=== PATIENT | female | born 1970 | race African-American/Black ===

== ENCOUNTER 2016-12-12 16:04 | Emergency (ER) | payer MEDICARE, MEDICAID ==
[~2016-12-12] VITALS: Ht 157.5 cm; Wt 85.0 kg
[~2016-12-12 16:04] MED LIST: FS300; HYDR-4005
[2016-12-12 16:29] VITALS: BP 131/87
== END 2016-12-12 22:30 | disposition left against medical advice (07) ==
LOC: ER 22:14
DX: Z53.21 Procedure and treatment not carried out due to patient leaving prior to being seen by health care provider (principal)

== ENCOUNTER 2017-01-13 13:43 | Inpatient (IN) | payer MEDICARE, MEDICAID ==
[~2017-01-13] VITALS: Ht 157.5 cm; Wt 98.4 kg
[~2017-01-13 13:43] MED LIST changes: -FS300; +FS300 PO
[2017-01-13 15:19] LABS: BASOPHILS % 0.3 % (0.0-2.0); EOSINOPHILS % 0.9 % (0.0-5.0); HEMATOCRIT. 34.7 % (36.0-48.0); HEMOGLOBIN. 11.2 g/dL (12.0-16.0); LYMPHOCYTES % 18.5 % (20.0-50.0); MEAN CORPUSCULAR HEMOGLOBIN 23.3 pg (28.0-32.0); MEAN PLATELET VOLUME 10.4 fl (7.4-10.4); MONOCYTES % 5.5 % (2.0-8.0); NEUTROPHILS % 74.8 % (40.0-76.0); PLATELET 228 x1000/uL (130-400); RED BLOOD CELL COUNT 4.82 mill/uL (4.2-5.4); RED CELL DISTRIBUTION WIDTH 18.9 % (11.6-14.6)
[2017-01-13 15:21] LABS: PROTHROMBIN TIME 10.7 sec
[2017-01-13 15:27] LABS: CARBON DIOXIDE 25 mEq/L (21-32); CHLORIDE 106 mEq/L (98-107); ETHANOL BLOOD < 10 mg/dL
[2017-01-13 15:31] LABS: CREATINE KINASE 90 IU/L (26-192); HCG SCREEN NEGATIVE; PHENYTOIN 1.4 ug/mL (10-20); TROPONIN I < 0.02 ng/mL (0.00-0.04)
[2017-01-13 15:33] LABS: CARBAMAZEPINE < 0.5 ug/mL (4-12)
[2017-01-13 15:38] LABS: PHENOBARBITAL < 2.1 ug/mL (15.0-40.0)
[2017-01-13] MEDS ORDERED: POTASSIUM CHLORIDE 20MEQ TABLET SR PO ONE (16:00)
[2017-01-13 16:09] LABS: CLARITY URINE CLEAR (CLEAR); COLOR URINE YELLOW (YELLOW); GLUCOSE URINE NEGATIVE (NEGATIVE); KETONES URINE NEGATIVE (NEGATIVE); LEUKOCYTE ESTERASE URINE 2+ (NEGATIVE); NITRITE URINE POSITIVE (NEGATIVE); OCCULT BLOOD URINE 1+ (NEGATIVE); PROTEIN URINE NEGATIVE (NEGATIVE); SPECIFIC GRAVITY URINE 1.015 (1.005-1.030); UROBILINOGEN URINE 0.2 E.U./dL (0.2-1.0)
[2017-01-13] MEDS ORDERED: MORPHINE SULFATE 4 MG/ML CPJ (NOT FOR IM USE) IV ONE (16:15)
[2017-01-13] MEDS ORDERED: ONDANSETRON HCL 4MG/2ML VIAL IV ONE (16:15)
[2017-01-13 16:26] LABS: *AMPHETAMINES SCREEN URINE NEGATIVE (NEGATIVE); *BARBITURATES SCREEN URINE NEGATIVE (NEGATIVE); *BENZODIAZEPINES SCREEN URINE NEGATIVE (NEGATIVE); *COCAINE SCREEN URINE NEGATIVE (NEGATIVE); METHADONE URINE SCREEN NEGATIVE (NEGATIVE); OPIATES URINE SCREEN NEGATIVE (NEGATIVE); PHENCYCLIDINE URINE SCREEN NEGATIVE (NEGATIVE)
[2017-01-13 16:27] LABS: CANNABINOID URINE SCREEN PRESUMTIVE POSITIVE (NEGATIVE)
[2017-01-13] MEDS ORDERED: CLONIDINE 0.1MG TABLET GT ONE (17:15)
[2017-01-13] MEDS ORDERED: LEVOFLOXACIN 500MG TABLET PO ONE (17:15)
[2017-01-13 19:33] VITALS: BP 108/77
[2017-01-13 20:00] VITALS: BP 98/59
[2017-01-13] MEDS ORDERED: MULT-1146 PO (20:27)
[2017-01-13] MEDS ORDERED: IBUP-1509 PO (20:27)
[2017-01-13] MEDS ORDERED: DOCU-138 PO (20:27)
[2017-01-13] MEDS ORDERED: OMEP20TA80 PO (20:27)
[2017-01-13] MEDS ORDERED: ATOR40TA70 PO (20:27)
[2017-01-13] MEDS ORDERED: CLOP75TA33 PO (20:27)
[2017-01-13] MEDS ORDERED: ACETAMINOPHEN 325MG TABLET PO PRN (20:45)
[2017-01-13] MEDS: IBUPROFEN 400MG TABLET PO SCH (21:27)
[2017-01-13] MEDS: DOCUSATE SODIUM 100MG CAPSULE PO SCH (21:29)
[2017-01-13] MEDS: ATORVASTATIN CALCIUM 40MG TABLET PO SCH (21:29)
[2017-01-13] MEDS: ENOXAPARIN 40MG/0.4ML SYR SUBCUT SCH (21:29)
[2017-01-13] MEDS: MULTIVITAMINS,THER W-MINERALS TABLET PO SCH (21:29)
[2017-01-13] MEDS: FERROUS SULFATE 325MG TABLET PO SCH (21:29)
[2017-01-14] VITALS: BP 101/59
[2017-01-14] MEDS ORDERED: VALS1TAB74 PO (00:34)
[2017-01-14 04:00] VITALS: BP 110/58
[2017-01-14 05:38] LABS: BASOPHILS % 0.1 % (0.0-2.0); EOSINOPHILS % 0.8 % (0.0-5.0); HEMATOCRIT. 33.2 % (36.0-48.0); HEMOGLOBIN. 10.7 g/dL (12.0-16.0); LYMPHOCYTES % 19.6 % (20.0-50.0); MEAN CORPUSCULAR HEMOGLOBIN 23.4 pg (28.0-32.0); MEAN CORPUSCULAR VOLUME 72.3 fL (81.0-99.0); MEAN PLATELET VOLUME 10.2 fl (7.4-10.4); MONOCYTES % 6.9 % (2.0-8.0); NEUTROPHILS % 72.6 % (40.0-76.0); PLATELET 219 x1000/uL (130-400); RED BLOOD CELL COUNT 4.59 mill/uL (4.2-5.4); RED CELL DISTRIBUTION WIDTH 18.8 % (11.6-14.6)
[2017-01-14 06:14] LABS: CARBON DIOXIDE 26 mEq/L (21-32); CHLORIDE 105 mEq/L (98-107)
[2017-01-14 06:18] LABS: HDL CHOLESTEROL 37 mg/dL (40-59); LDL CHOLESTEROL 84 mg/dL (5-100)
[2017-01-14 08:00] VITALS: BP 93/52
[2017-01-14] MEDS: PANTOPRAZOLE 40MG DR TABLET PO SCH (08:37)
[2017-01-14] MEDS: FERROUS SULFATE 325MG TABLET PO SCH (08:37)
[2017-01-14] MEDS: MULTIVITAMINS,THER W-MINERALS TABLET PO SCH (08:38)
[2017-01-14] MEDS: DOCUSATE SODIUM 100MG CAPSULE PO SCH (08:38)
[2017-01-14] MEDS: IBUPROFEN 400MG TABLET PO SCH ×2 (08:39→16:56)
[2017-01-14 12:00] VITALS: BP 94/58
[2017-01-14 16:00] VITALS: BP 95/66
[2017-01-14] MEDS: ATORVASTATIN CALCIUM 40MG TABLET PO SCH (16:56)
[2017-01-14] MEDS: BACLOFEN 10MG TABLET PO SCH (17:00)
[2017-01-14 20:00] VITALS: BP 106/58
[2017-01-14] MEDS: ENOXAPARIN 40MG/0.4ML SYR SUBCUT SCH (21:12)
[2017-01-15] VITALS: BP 88/60
[2017-01-15 01:00] VITALS: BP 116/73
[2017-01-15 04:00] VITALS: BP 101/55
[2017-01-15 08:00] VITALS: BP 99/64
[2017-01-15] MEDS: MULTIVITAMINS,THER W-MINERALS TABLET PO SCH (08:28)
[2017-01-15] MEDS: FERROUS SULFATE 325MG TABLET PO SCH (08:28)
[2017-01-15] MEDS: BACLOFEN 10MG TABLET PO SCH ×2 (08:28→17:06)
[2017-01-15] MEDS: PANTOPRAZOLE 40MG DR TABLET PO SCH (08:28)
[2017-01-15] MEDS: DOCUSATE SODIUM 100MG CAPSULE PO SCH (08:28)
[2017-01-15] MEDS: IBUPROFEN 400MG TABLET PO SCH ×2 (08:32→17:07)
[2017-01-15 12:00] VITALS: BP 99/67
[2017-01-15 16:00] VITALS: BP 99/64
[2017-01-15] MEDS: ATORVASTATIN CALCIUM 40MG TABLET PO SCH (17:06)
[2017-01-15] MEDS: ENOXAPARIN 40MG/0.4ML SYR SUBCUT SCH (20:43)
[2017-01-15] MEDS: SODIUM CHLORIDE 0.45% 1,000 ML IV SCH (20:43)
[2017-01-16] VITALS: BP 101/93
[2017-01-16 04:00] VITALS: BP 112/61
[2017-01-16] MEDS: PANTOPRAZOLE 40MG DR TABLET PO SCH (06:40)
[2017-01-16 08:00] VITALS: BP 109/70
[2017-01-16] MEDS: DOCUSATE SODIUM 100MG CAPSULE PO SCH (08:26)
[2017-01-16] MEDS: MULTIVITAMINS,THER W-MINERALS TABLET PO SCH (08:26)
[2017-01-16] MEDS: FERROUS SULFATE 325MG TABLET PO SCH (08:26)
[2017-01-16] MEDS: BACLOFEN 10MG TABLET PO SCH (08:27)
[2017-01-16] MEDS: IBUPROFEN 400MG TABLET PO SCH (08:28)
[2017-01-16] MEDS: SODIUM CHLORIDE 0.45% 1,000 ML IV SCH (11:38)
[2017-01-16 11:59] VITALS: BP 97/56
[2017-01-16 12:00] VITALS: BP 97/56
[2017-01-16 14:43] LABS: BASOPHILS % 0.2 % (0.0-2.0); EOSINOPHILS % 0.9 % (0.0-5.0); HEMATOCRIT. 34.3 % (36.0-48.0); HEMOGLOBIN. 11.3 g/dL (12.0-16.0); LYMPHOCYTES % 19.5 % (20.0-50.0); MEAN CORPUSCULAR HEMOGLOBIN 23.6 pg (28.0-32.0); MEAN CORPUSCULAR VOLUME 71.6 fL (81.0-99.0); MEAN PLATELET VOLUME 10.7 fl (7.4-10.4); MONOCYTES % 6.1 % (2.0-8.0); NEUTROPHILS % 73.3 % (40.0-76.0); PLATELET 248 x1000/uL (130-400); RED BLOOD CELL COUNT 4.79 mill/uL (4.2-5.4); RED CELL DISTRIBUTION WIDTH 18.6 % (11.6-14.6)
[2017-01-16 15:16] LABS: CARBON DIOXIDE 26 mEq/L (21-32); CHLORIDE 108 mEq/L (98-107)
[2017-01-17] MEDS ORDERED: FAMOTIDINE 20MG TABLET PO SCH (09:00)
== END 2017-01-16 15:50 | disposition home or self-care (01) | DRG 690 ==
LOC: EDBEDREQ 14:24 → ER 15:00 → 7WST 16:08 → EDBEDREQ 16:09 → ENRESERV 16:57
PROVIDERS: ADMIT Family Medicine; ATTEND Family Medicine
DX: N39.0 Urinary tract infection, site not specified (principal); I69.351 Hemiplegia and hemiparesis following cerebral infarction affecting right dominant side; D64.9 Anemia, unspecified; E66.01 Morbid (severe) obesity due to excess calories; I10 Essential (primary) hypertension; F32.9 Major depressive disorder, single episode, unspecified; F41.9 Anxiety disorder, unspecified; Z90.710 Acquired absence of both cervix and uterus; Z90.722 Acquired absence of ovaries, bilateral; Z88.0 Allergy status to penicillin; Z79.899 Other long term (current) drug therapy; Z82.49 Family history of ischemic heart disease and other diseases of the circulatory system; Z68.39 Body mass index [BMI] 39.0-39.9, adult; Z91.011 Allergy to milk products
CPT/HCPCS: 36415; 70450; 70551; 71010; 80053; 80061; 80156; 80165; 80184; 80185; 80305; 81001; 82550; 83735; 83880; 84443; 84484; 84703; 85025; 85610; 87086; 93005; 93306; 93880; 96374; 96375; 97163; 97166; 97530; 97535; 99285; G0482; J1650; J2270; J2405

== ENCOUNTER 2017-07-24 17:14 | Emergency (ER) | payer MEDICARE, MEDICAID ==
[~2017-07-24] VITALS: Ht 160 cm; Wt 98.0 kg
[~2017-07-24 17:14] MED LIST changes: +ATOR40TA70 PO; +CLOP75TA33 PO; +DOCU-138 PO; +FERR325T23 PO; -FS300 PO; -HYDR-4005; +IBUP-2028 PO; +MULT-1146 PO; +OMEP20TA2 PO; +VALS1TAB74 PO
[2017-07-24] MEDS ORDERED: CLOP75TA16 PO (17:24)
[2017-07-24 22:28] VITALS: BP 122/84
== END 2017-07-24 22:29 | disposition home or self-care (01) ==
LOC: ER 18:28
DX: S80.01XA Contusion of right knee, initial encounter (principal); I10 Essential (primary) hypertension; Z88.0 Allergy status to penicillin; Z91.011 Allergy to milk products; Z86.73 Personal history of transient ischemic attack (TIA), and cerebral infarction without residual deficits; Z90.710 Acquired absence of both cervix and uterus; W01.0XXA Fall on same level from slipping, tripping and stumbling without subsequent striking against object, initial encounter; Y93.89 Activity, other specified; Y92.811 Bus as the place of occurrence of the external cause
CPT/HCPCS: 73562; 99284

== ENCOUNTER 2018-01-26 09:41 | Emergency (ER) | payer MEDICARE, MEDICAID ==
[~2018-01-26] VITALS: Ht 157.5 cm; Wt 88.0 kg
[~2018-01-26 09:41] MED LIST changes: +CLOP75TA16 PO
[2018-01-26 10:01] VITALS: BP 131/73
[2018-01-26] MEDS ORDERED: ACETAMINOPHEN 325MG TABLET PO ONE (14:00)
== END 2018-01-26 14:14 | disposition home or self-care (01) ==
LOC: ER 10:34
DX: S90.111A Contusion of right great toe without damage to nail, initial encounter (principal); I10 Essential (primary) hypertension; Z91.011 Allergy to milk products; Z88.8 Allergy status to other drugs, medicaments and biological substances; Z86.73 Personal history of transient ischemic attack (TIA), and cerebral infarction without residual deficits; X58.XXXA Exposure to other specified factors, initial encounter; Y93.89 Activity, other specified; Y92.89 Other specified places as the place of occurrence of the external cause; Y99.8 Other external cause status
CPT/HCPCS: 73630; 99284

== ENCOUNTER 2018-05-23 17:11 | Emergency (ER) | payer MEDICARE, MEDICAID ==
[~2018-05-23] VITALS: Ht 162.6 cm; Wt 90.0 kg
[2018-05-23] MEDS ORDERED: TRAMADOL 50MG TABLET PO ONE (18:00)
[2018-05-23 21:10] VITALS: BP 112/76
== END 2018-05-23 21:11 | disposition home or self-care (01) ==
LOC: ER 17:11
DX: S09.90XA Unspecified injury of head, initial encounter (principal); M54.2 Cervicalgia; M25.512 Pain in left shoulder; I10 Essential (primary) hypertension; Z86.73 Personal history of transient ischemic attack (TIA), and cerebral infarction without residual deficits; Z91.011 Allergy to milk products; Z79.899 Other long term (current) drug therapy; Y08.89XA Assault by other specified means, initial encounter; Y93.89 Activity, other specified; Y92.89 Other specified places as the place of occurrence of the external cause; Y99.8 Other external cause status
CPT/HCPCS: 73030; 81025; 99284

== ENCOUNTER 2019-02-17 17:11 | Emergency (ER) | payer MEDICARE, MEDICAID ==
[~2019-02-17] VITALS: Ht 157.5 cm; Wt 94.0 kg
[~2019-02-17 17:11] MED LIST changes: -CLOP75TA16 PO; +CLOP75TA4 PO
[2019-02-17] MEDS ORDERED: IBUPROFEN 600MG TABLET PO ONE (19:45)
[2019-02-17] MEDS ORDERED: HYDROCODONE/ACETAMINOPHEN 5/325MG TABLET PO ONE (19:45)
[2019-02-17 21:02] LABS: CLARITY URINE CLEAR (CLEAR); COLOR URINE DARK YELLOW (YELLOW); KETONES URINE NEGATIVE (NEGATIVE); LEUKOCYTE ESTERASE URINE TRACE (NEGATIVE); NITRITE URINE POSITIVE (NEGATIVE); OCCULT BLOOD URINE 1+ (NEGATIVE); PH URINE 6.5 (4.5-8.0); PROTEIN URINE NEGATIVE (NEGATIVE); SPECIFIC GRAVITY URINE 1.015 (1.005-1.030); UROBILINOGEN URINE 0.2 E.U./dL (0.2-1.0)
[2019-02-17 22:20] VITALS: BP 109/77
== END 2019-02-17 22:30 | disposition home or self-care (01) ==
LOC: ER 17:11
DX: S90.121A Contusion of right lesser toe(s) without damage to nail, initial encounter (principal); M72.2 Plantar fascial fibromatosis; I10 Essential (primary) hypertension; Z86.73 Personal history of transient ischemic attack (TIA), and cerebral infarction without residual deficits; Z87.440 Personal history of urinary (tract) infections; Z90.710 Acquired absence of both cervix and uterus; Z79.899 Other long term (current) drug therapy; Z91.011 Allergy to milk products; W22.8XXA Striking against or struck by other objects, initial encounter; Y93.01 Activity, walking, marching and hiking; Y92.89 Other specified places as the place of occurrence of the external cause; Y99.8 Other external cause status
CPT/HCPCS: 73630; 81003; 81025; 99284

== ENCOUNTER 2019-04-26 17:48 | Emergency (ER) | payer MEDICARE, MEDICAID ==
[~2019-04-26] VITALS: Ht 157.5 cm; Wt 80.0 kg
[2019-04-26] MEDS ORDERED: SODIUM CHLORIDE 0.9% 1,000 ML IV ONE (20:33)
[2019-04-26] MEDS ORDERED: ONDANSETRON HCL 4MG/2ML INJ IV STA (20:33)
[2019-04-26] MEDS ORDERED: KETOROLAC 30MG/ML VIAL IV STA (20:33)
[2019-04-26] MEDS ORDERED: MORPHINE SULFATE 4 MG/ML CPJ (NOT FOR IM USE) IV STA (20:33)
[2019-04-26] MEDS ORDERED: TETANUS, DIPHTHERIA, PERTUSSIS VAC/PF 0.5ML (>7YR OLD) IM ONE (20:45)
[2019-04-26 20:55] LABS: EOSINOPHILS % 1.3 % (0.0-5.0); HEMATOCRIT. 38.1 % (36.0-48.0); HEMOGLOBIN. 12.5 g/dL (12.0-16.0); LYMPHOCYTES % 9.1 % (20.0-50.0); MEAN CORPUSCULAR HEMOGLOBIN 25.2 pg (28.0-32.0); MEAN CORPUSCULAR VOLUME 76.9 fL (81.0-99.0); MEAN PLATELET VOLUME 10.4 fl (7.4-10.4); MONOCYTES % 4.4 % (2.0-8.0); NEUTROPHILS % 85.2 % (40.0-76.0); PLATELET 252 x1000/uL (130-400); RED BLOOD CELL COUNT 4.95 mill/uL (4.2-5.4); RED CELL DISTRIBUTION WIDTH 15.1 % (11.6-14.6)
[2019-04-26 20:59] LABS: CHLORIDE 106 mEq/L (98-107)
[2019-04-26] MEDS ORDERED: ACETAMINOPHEN 500MG TABLET PO ONE (22:30)
[2019-04-27 01:15] VITALS: BP 115/69
== END 2019-04-27 01:40 | disposition home or self-care (01) ==
LOC: ER 17:48
DX: S82.001A Unspecified fracture of right patella, initial encounter for closed fracture (principal); I11.9 Hypertensive heart disease without heart failure; F17.200 Nicotine dependence, unspecified, uncomplicated; V03.90XA Pedestrian on foot injured in collision with car, pick-up truck or van, unspecified whether traffic or nontraffic accident, initial encounter; Y92.410 Unspecified street and highway as the place of occurrence of the external cause; Y93.9 Activity, unspecified; Z86.73 Personal history of transient ischemic attack (TIA), and cerebral infarction without residual deficits; Z91.011 Allergy to milk products
CPT/HCPCS: 36415; 73130; 73502; 73552; 73562; 73590; 73610; 80053; 81025; 85025; 90471; 90715; 96374; 96375; 99284; J1885; J2270; J2405; J7030; L1830

== ENCOUNTER 2019-04-27 14:46 | Emergency (ER) | payer MEDICARE, MEDICAID ==
[~2019-04-27] VITALS: Ht 157.5 cm; Wt 69.0 kg
[2019-04-27 16:29] VITALS: BP 122/80
== END 2019-04-27 16:30 | disposition home or self-care (01) ==
LOC: ER 14:55
DX: S82.001D Unspecified fracture of right patella, subsequent encounter for closed fracture with routine healing (principal); S82.121D Displaced fracture of lateral condyle of right tibia, subsequent encounter for closed fracture with routine healing; I11.9 Hypertensive heart disease without heart failure; X58.XXXD Exposure to other specified factors, subsequent encounter; Z86.73 Personal history of transient ischemic attack (TIA), and cerebral infarction without residual deficits; Z91.011 Allergy to milk products
CPT/HCPCS: 29505; 99283

== ENCOUNTER 2024-12-05 15:38 | Emergency (ER) | payer MEDICARE, MEDICAID ==
[~2024-12-05] VITALS: Ht 160 cm; Wt 77.0 kg
[~2024-12-05 15:38] MED LIST changes: +CLOP-31 PO; -CLOP75TA4 PO; -OMEP20TA2 PO; +OMEP20TA23 PO; -VALS1TAB74 PO; +VALS1TAB75 PO
[2024-12-05 15:39] VITALS: TEMP 36.6; O2SAT 98
[2024-12-05] MEDS ORDERED: METHOCARBAMOL 750MG TABLET PO SCH (17:15)
[2024-12-05] MEDS: KETOROLAC 30MG/ML VIAL IM ONE (17:40)
[2024-12-05] MEDS ORDERED: IBUP-2029 MT (18:13)
[2024-12-05] MEDS ORDERED: METH-653 MT (18:13)
[2024-12-05 18:35] VITALS: BP 138/78; PULSE 63; RESP 16; O2SAT 99
== END 2024-12-05 18:40 | disposition home or self-care (01) ==
LOC: ER 15:38
DX: S43.401A Unspecified sprain of right shoulder joint, initial encounter (principal); S93.401A Sprain of unspecified ligament of right ankle, initial encounter; S09.90XA Unspecified injury of head, initial encounter; I10 Essential (primary) hypertension; Z86.73 Personal history of transient ischemic attack (TIA), and cerebral infarction without residual deficits; Z79.899 Other long term (current) drug therapy; Z88.0 Allergy status to penicillin; X50.1XXA Overexertion from prolonged static or awkward postures, initial encounter; Y93.89 Activity, other specified; Y92.89 Other specified places as the place of occurrence of the external cause; Y99.8 Other external cause status
CPT/HCPCS: 99284; 73030; 73610; 96372; J1885